=== PATIENT | male | born 1985 | race African-American/Black ===

== ENCOUNTER 2020-10-28 13:55 | Inpatient (IN) | payer OTHER ==
[~2020-10-28] VITALS: Ht 175.3 cm; Wt 95.0 kg
[2020-10-28] MEDS ORDERED: LORazepam 2 MG TAB PO PRN (14:15)
[2020-10-28 15:17] LABS: HEMATOCRIT 45.1 % (42.0-52.0); HEMOGLOBIN 16.1 g/dl (13.5-17.5); MEAN CORPUSCULAR HEMOGLOBIN 31.2 pg (27.0-33.0); MEAN CORPUSCULAR HGB CONC 35.7 g/dl (32.0-36.5); MEAN CORPUSCULAR VOLUME 87.4 fl (80.0-96.0); PLATELET COUNT, AUTOMATED 327 10^3/uL (150-450); RED BLOOD COUNT 5.16 10^6/uL (4.30-6.10); WHITE BLOOD COUNT 11.9 10^3/uL (4.0-10.0)
[2020-10-28 15:37] LABS: AMPHETAMINES LEVEL URINE NEGATIVE (NEGATIVE); BARBITURATES URINE NEGATIVE (NEGATIVE); BENZODIAZEPINES URINE NEGATIVE (NEGATIVE); CANNABINOIDS URINE NEGATIVE (NEGATIVE); COCAINE METABOLITE URINE NEGATIVE (NEGATIVE); METHADONE URINE NEGATIVE (NEGATIVE); OPIATES URINE NEGATIVE (NEGATIVE); PHENCYCLIDINE URINE NEGATIVE (NEGATIVE)
[2020-10-28 16:14] LABS: ACETAMINOPHEN LEVEL < 2.0 UG/ML (10.0-30.0); ALBUMIN 4.2 GM/DL (3.2-5.2); ALT/SGPT 33 U/L (12-78); BILIRUBIN,DIRECT 0.1 MG/DL (0.0-0.2); BILIRUBIN,TOTAL 0.7 MG/DL (0.2-1.0); BLOOD UREA NITROGEN 13 MG/DL (7-18); CALCIUM LEVEL 9.3 MG/DL (8.5-10.1); CARBON DIOXIDE LEVEL 30 MEQ/L (21-32); CHLORIDE LEVEL 105 MEQ/L (98-107); CREATININE FOR GFR 0.86 MG/DL (0.70-1.30); ETHYL ALCOHOL (ETHANOL) < 0.003 % (0.000-0.010); GLOMERULAR FILTRATION RATE > 60.0 (>60); GLUCOSE, FASTING 78 MG/DL (70-100); POTASSIUM SERUM 3.9 MEQ/L (3.5-5.1); SALICYLATE LEVEL < 1.7 MG/DL (5.0-30.0); SODIUM LEVEL 139 MEQ/L (136-145); THYROID STIMULATING HORMONE 0.893 uIU/ML (0.358-3.740); TOTAL PROTEIN 7.5 GM/DL (6.4-8.2)
[2020-10-28] MEDS: FOLIC ACID 1 MG TAB PO SCH (16:30)
[2020-10-28] MEDS: MULTIVITAMINS/MINERALS THERAP 1 TAB PO SCH (16:30)
[2020-10-28] MEDS: THIAMINE 100 MG TAB PO SCH ×2 (16:30→22:28)
--- NOTE | 2020-10-28 17:22 | ECGEPIP ---
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
[2020-10-28 19:05] LABS: RSV AMPLIFICATION NEGATIVE (NEGATIVE)
[2020-10-28] MEDS ORDERED: traZODone 50 MG TAB PO PRN (19:45)
[2020-10-28] MEDS ORDERED: ACETAMINOPHEN TAB 650MG DOSE (2X325MG) PO PRN (19:45)
[2020-10-28] MEDS ORDERED: MAALOX 30 ML SUSP *UDC PO PRN (19:45)
[2020-10-28] MEDS ORDERED: MOM 30ML SUSPENSION UDC PO PRN (19:45)
[2020-10-28 21:00] VITALS: BP 133/84
[2020-10-29 06:11] VITALS: BP 120/68
[2020-10-29] MEDS: MULTIVITAMINS/MINERALS THERAP 1 TAB PO SCH (09:43)
[2020-10-29] MEDS: THIAMINE 100 MG TAB PO SCH (09:43)
[2020-10-29] MEDS: FOLIC ACID 1 MG TAB PO SCH (09:43)
--- NOTE | 2020-10-29 12:52 | HPEPDOC ---
General Date of Admission October 28, 2020 at 13:56 Date of Service: October 29, 2020 Chief Complaint The patient is a 35-year-old male admitted with a reason for visit of Unspecified Depressive D/O. Source: Patient Exam Limitations: No limitations History of Present Illness Patient is 35 years old male with past history of knees arthritis, alcohol abuse presented to the hospital with suicidal ideation. Pt reports that he has been for 14 years and he has 3 children. 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 He reports that currently his is living in [place] with their three children. Pt reports that his is not willing to do marriage counseling and in turn he feels devastated. Pt reports SI with multiple plans. Patient reported that a few years ago he had cardiac arrhythmia but he doesn't remember his diagnosis. He doesn't take any medications. Also he states that he thinks 2 to 3 beers daily. Patient denies fever, chills, chest pain, palpitations, diarrhea or dysuria Home Medications No Active Prescriptions or Reported Meds Allergies Coded Allergies: No Known Allergies (Unverified , 10/28/20) Past Medical History Medical History knees arthritis, alcohol abuse Social History * Smoker: current smoker Alcohol: heavy Drugs: denies A-FIB/CHADSVASC A-FIB History Current/History of A-Fib/PAF?: No Current PO Anticoag Therapy: No Review of Systems Constitutional: Denies: Chills, Fever Eyes: Denies: Pain ENT: Denies: Head Aches Skin: Denies: Rash, Lesions Pulmonary: Denies: Dyspnea Cardiovascular: Denies: Chest Pain Gastrointestinal: Denies: Nausea Genitourinary: Denies: Dysuria Hematologic: Denies: Bruising Endocrine: Denies: Polydipsia Musculoskeletal: Denies: Neck Pain Neurological: Denies: Weakness Psych: Reports: Depression Physical Examination General Exam: Positive: Alert, Cooperative Eye Exam: Positive: PERRLA ENT Exam: Positive: Atraumatic Neck Exam: Positive: Supple; Negative: JVD Chest Exam: Positive: Clear to auscultation Heart Exam: Positive: Rate Normal Telemetry: Positive: No significant arrhythmia Abdomen Exam: Positive: Normal bowel sounds Extremity Exam: Negative: Clubbing Skin Exam: Negative: Nl turgor and temperature Neuro Exam: Positive: Normal Gait Psych Exam: Positive: Oriented x 3 Vital Signs Vital Signs Date Time Temp Pulse Resp B/P (MAP) Pulse Ox O2 Delivery O2 Flow Rate FiO2 10/29/20 06:11 98.4 72 16 120/68 (85) 98 Room Air Laboratory Data Labs 24H Laboratory Tests 2 10/28/20 14:49: Nucleated Red Blood Cells % (auto) 0.0, Anion Gap 4L, Glomerular Filtration Rate > 60.0, Calcium Level 9.3, Total Bilirubin 0.7, Direct Bilirubin 0.1, Aspartate Amino Transf (AST/SGOT) 15, Alanine Aminotransferase (ALT/SGPT) 33, Alkaline Phosphatase 98, Total Protein 7.5, Albumin 4.2, Albumin/Globulin Ratio 1.3, Thyroid Stimulating Hormone (TSH) 0.893, Salicylates Level < 1.7L, Urine Opiates Screen NEGATIVE, Urine Methadone Screen NEGATIVE, Acetaminophen Level < 2.0L, Urine Barbiturates Screen NEGATIVE, Urine Phencyclidine Screen NEGATIVE, Urine Amphetamines Screen NEGATIVE, Urine Benzodiazepines Screen NEGATIVE, Urine Cocaine Metabolite Screen NEGATIVE, Urine Cannabinoids Screen NEGATIVE, Ethyl Alcohol Level < 0.003 10/28/20 18:11: Coronavirus (COVID-19)(PCR) NEGATIVE, Influenza Type A (RT-PCR) NEGATIVE, Influenza Type B (RT-PCR) NEGATIVE, Respiratory Syncytial Virus (PCR) NEGATIVE CBC/BMP Laboratory Tests 10/28/20 14:49 Assessment/Plan Patient is 35 years old male with past history of knees arthritis, alcohol abuse presented to the hospital with suicidal ideation. Pt reports that he has been for 14 years and he has 3 children. 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 He reports that currently his is living in [place] with their three children. Pt reports that his is not willing to do marriage counseling and in turn he feels devastated. Pt reports SI with multiple plans. Patient reported that a few years ago he had cardiac arrhythmia but he doesn't remember his diagnosis. He doesn't take any medications. Also he states that he thinks 2 to 3 beers daily. Patient denies fever, chills, chest pain, palpitations, diarrhea or dysuria Problems (1) Suicidal ideation Status: Acute Problem Text: Defer treatment to psych team (2) History of cardiac arrhythmia Problem Text: Will check EKG (3) ETOH abuse Status: Chronic Problem Text: Continue CIWA Plan / VTE VTE Prophylaxis Ordered?: No VTE Exclusion Mechanical Proph: Low Risk for VTE CASA SHEIKH DO October 29, 2020 12:52
--- NOTE | 2020-10-29 15:39 | MHHPEPDOC ---
General Date Of Admission: October 28, 2020 Legal Status: Chief Complaint " I've been dealing with depression, left and now talking about divorce" History of Present Illness HISTORY OF THE PRESENT ILLNESS: Patient is a 35 -year-old , male, Active Duty [employer], who was admitted ti [facility] on legal status after reporting SI with multiple plans. . He states that he has been dealing with depression since July 2020 when his left him. She took their 3 chi ldren and went back to [place] where she comes from. They have been for 14 years and were having marital problems. States that;" I got so wrapped up in the enemy and forgot about my family". He states that about 2 weeks ago, she spoke with his on the telephone and she told him that they would not be getting back together and she is contemplating a divorce. She also refused to consider marriage counseling. Patient says that his said ; " I don't want to do this any more. You will always be my herrera and shining armor but I need a aba". Patient states that since their conversation, his depressive symptoms have become worse. Says that he has been having trouble sleeping, has been feeling helpless and hopeless, having anxiety and having suicidal thoughts. He denies having a suicide plan, but states that "when I'm having the suicide thoughts, I see my , my casket with people crying and being sad". He states that another stressor is the [employer] life. States that he's been in the [employer] for 14 years and he wants to get out. States; " I still have 2 more years in my contract, but I don't want to do one more day". He states that yesterday the depression and suicidal thoughts were so strong that he went to [facility] clinic for help, but they were unable to see him and told him that they would see him in 4 days. He states that he got upset that he wouldn't be seen at [facility] and he needed immediate help. He then drove himself to the [facility] ED. He has never been diagnosed with mental illness and is not on any medication. He drinks 3-4 beers a day. Smokes a pack a day. Denies using any other substances. Denies HI/AV/VH PER ED NOTE:Patient self presents to [facility] with increased hopelessness/helpl essness, depression and SI. 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 Patient reports that he has been to [place], [place], and [place]. Patient reports that he has been for 14 years and he has 3 children. Patient reports that while he was deployed he was unfaithful on 3 separate occasions. He reports that currently his is living in [place] with their three children. Patient reports that his is not willing to do marriage counseling and in turn he feels devastated. Patient reports SI with multiple plans. He repo rts that he could take multiple sleeping pills with alcohol, and also speaks of slitting his wrist. Patient is very tearful and reports that he hates feeling this way and not trusting himself. Patient does report that he recently has had a couple suicides in the family with the most recent being his father in law. Patient reports that he has been dreaming very vividly about his and at times this is very scary for him. Patient denies SI/HI/Self Injury Pt report that sometimes he hears "You'll be Okay" however, is unable to recognized the voice. Patient denies VH. Patient reports okay appetite and poor sleep. Psychiatric Review of Systems Depression (2 or more weeks): depressed mood, insomnia/hypersomnia, feelings of excess/guilt, decreased energy, difficulty concentrating, suicidal thoughts (SI- no plan, but sees people at his people hurt) Claudia (4 or more days of): denies Psychosis: denies PTSD: denies Anxiety: situational anxiety, stressor related anxiety Anxiety/ 6 months or more of: easily fatigued, irritability, sleep disturbance Past Psychiatric History Previous Psychiatric Diagnosis: Denies Previous Psychiatric Admissions: None Suicide Attempts: None Psychiatric Follow-up: Reported to [employer] on 10/28/20 Psychiatric medications: None Past Medical History Medical Problems Mitral regurgitation Head Injury: No Seizures: No Hospitalizations: No Surgeries: No Family Medical/Psychiatric HX Psychiatric Disorders: No Addiction History nicotine (a pach a day), alcohol (3 to 4 beers a day), cocaine Social History Childhood:Patient says childhood was " good". Grew up with mother and brother Abuse/Trauma:Denies Current Living Situation: [facility] Education: some college Employment: Active duty soldier Social Support: His Mother, has a friend in the army who is a support. Legal: Denies. Marital: Mental Status Examination General Appearance: personal clothing, other (slightly unkempt) Build: average Demeanor: average Eye Contact: average Activity: anxious Behavior: cooperative Speech: clear Mood: depressed Affect: anxious Thought Process: logical/linear Thought Content (Delusions): none reported Thought Content (Other): guilty Thought Content (Aggressive): none reported Perception (Hallucinations): none reported Perception (Other): none reported Cognition (Impairment of): none reported Cognition(Intelligence Est.): average Oriented: Awake, Alert, Oriented times three Insight: fair Judgment: Poor Psychosis: Denies Diagnoses Major Depressive Disorder, single episode, moderate Substance use disorder, alcohol Substance use disorder, nicotine A-FIB/CHADSVASC A-FIB History Current/History of A-Fib/PAF?: No Current PO Anticoag Therapy: No Assessment Patient is seen today. He is dressed in hospital clothing and is slightly unkempt. He is alert and oriented X 3. He states that he has been dealing with depression since July 2020 when his left him. States that she took their 3 children and went back to [place] where she comes from. States that they have been for 14 years and were having marital problems. States that;" I got so wrapped up in the enemy and forgot about my family". He states that about 2 weeks ago, she spoke with his on the telephone and she told him that they would not be getting back together and she is contemplating a divorce. She also refused to consider marriage counseling. Patient says that h is said ; " I don't want to do this any more, you will always be my herrera and shining armor but I need a aba". Patient states that since their conversation, his depressive symptoms have become worse. Says that he has been having trouble sleeping, has been feeling helpless and hopeless, having excessive guilt, having anxiety and having suicidal thoughts. He denies having a suicide plan, but states that "when I'm having the suicide thoughts, I see my , my casket with people crying and being sad". He states that another stressor is the [employer] life. States that he's been in the [employer] for 14 years and he wants to get out. States; " I still have 2 more years in my contract, but I don't want to do one more day". He states that yesterday the depression and suicidal thoughts were very strong that he went to [facility] clinic for help, but they were unable to see him and told him that they would see him in 4 days. He states that he got upset that he wouldn't be seen at [facility] and he needed immediate help. He then drove himself to the [facility] ED. He states that he has never been diagnosed with mental illness and is not on any medication. He drinks 3-4 beers a day. Smokes a pack a day. Denies using any other substances. Today he denies HI/AV/VH. States that he feels " a bit better" than yesterday. States that he is still depressed and anxious. Rates his depression at 8/10. States that since he was admitted, he has mostly been staying in his room. Encouraged patient to interact with peers and participate in group psychotherapy session. He is started on Zoloft 25mg PO today then from tomorrow Zoloft 50mg PO daily. Initial Treatment Plan 1. Patient was admitted on a [9.39] status. 2. Complete history was obtained. 3. With patients permission, family will be contacted and database will be expanded. 4. Patients medication regimen will be reviewed and changed accordingly. 5. Patient will be provided with protected environment. 6. Patient will be treated with individual, group, and milieu therapies. 7. Patient will receive supportive psych-education. 8. Discharge planning will commence immediately. 9. Outpatient follow-up treatment will be strongly recommended. 10. The initial treatment plan will focus initially on: * Depression. * Risk for suicide. ESTIMATED LENGTH OF STAY: - DAYS. TIME SPENT COUNSELING AND COORDINATING INITIAL CARE: minutes. N/A-No Antipsychotics Vital Signs Vital Signs Date Time Temp Pulse Resp B/P (MAP) Pulse Ox O2 Delivery O2 Flow Rate FiO2 10/29/20 06:11 98.4 72 16 120/68 (85) 98 Room Air Laboratory Data 24H Labs Laboratory Tests 2 10/28/20 14:49: Nucleated Red Blood Cells % (auto) 0.0, Anion Gap 4L, Glomerular Filtration Rate > 60.0, Calcium Level 9.3, Total Bilirubin 0.7, Direct Bilirubin 0.1, Aspartate Amino Transf (AST/SGOT) 15, Alanine Aminotransferase (ALT/SGPT) 33, Alkaline Phosphatase 98, Total Protein 7.5, Albumin 4.2, Albumin/Globulin Ratio 1.3, Thyroid Stimulating Hormone (TSH) 0.893, Salicylates Level < 1.7L, Urine Opiates Screen NEGATIVE, Urine Methadone Screen NEGATIVE, Acetaminophen Level < 2.0L, Urine Barbiturates Screen NEGATIVE, Urine Phencyclidine Screen NEGATIVE, Urine Amphetamines Screen NEGATIVE, Urine Benzodiazepines Screen NEGATIVE, Urine Cocaine Metabolite Screen NEGATIVE, Urine Cannabinoids Screen NEGATIVE, Ethyl Alcohol Level < 0.003 10/28/20 18:11: Coronavirus (COVID-19)(PCR) NEGATIVE, Influenza Type A (RT-PCR) NEGATIVE, Influenza Type B (RT-PCR) NEGATIVE, Respiratory Syncytial Virus (PCR) NEGATIVE CBC/BMP Laboratory Tests 10/28/20 14:49 Medications Scheduled Sertraline HCl (Sertraline HCl) 50 Mg Tablet, 50 MG PO DAILY for Depression Scheduled PRN Nicotine (Nicotine Patch) 21 Mg Patch.td24, 21 MG TD DAILY PRN for NICOTINE WITHDRAWAL Allergies Coded Allergies: No Known Allergies (Unverified , 10/28/20) OMAR FLOYD NP October 29, 2020 12:28
[2020-10-29] MEDS ORDERED: SERTRALINE HCL 25 MG TABLET PO ONE (17:15)
[2020-10-29 17:34] VITALS: BP 132/78
--- NOTE | 2020-10-29 22:15 | ECGEPIP ---
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 Electronically Signed on 10-29-2020 22:14:59 EDT by Elvis Carr
[2020-10-30 06:40] VITALS: BP 121/61
[2020-10-30] MEDS: SERTRALINE HCL 50 MG TAB PO SCH (09:08)
--- NOTE | 2020-10-30 20:50 | MHIPNPDOC ---
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 Pt reports that he has been to [place], [place], and [place]. Pt reports that he has been for 14 years and he has 3 children. 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 He reports that currently his is living in [place] with their three children. Pt reports that his is not willing to do marriage counseling and in turn he feels devastated. Pt reports SI with multiple plans. He reports that he could take multiple sleeping pills with alcohol, and also speaks of slitting his wrist. Pt is very tearful and reports that he hates feeling this way and not trusting himself. Pt does report that he recently has had a couple suicides in the family with the most recent being his father in law. Pt reports that he has been dreaming very vividly about his and at times this is very scary for him. Pt denies SI/HI/Self Inj Pt report that sometimes he hears "You'll be Okay" however, is unable to recognized the voice.Pt denies VH. Pt reports okay appetite and poor sleep. VITAL SIGNS: See below. NEW TEST RESULTS: See below CURRENT MEDICATIONS: See below. MENTAL STATUS EXAMINATION: General Appearance: hospital clothes, good hygiene and grooming, good eye contact Build: average Demeanor: average Eye Contact: average Activity: anxious, a little restless Behavior: cooperative Speech: clear Mood: OK Affect: Mildly anxious Thought Process: logical/linear Thought Content (Delusions): none reported Thought Content (Other): guilty Thought Content (Aggressive): none reported Perception (Hallucinations): none reported Perception (Other): none reported Cognition (Impairment of): none reported Cognition(Intelligence Est.): average Oriented: Awake, Alert, Oriented times three Insight: fair Judgment: Poor Psychosis: Denies Diagnoses Major Depressive Disorder, single episode, moderate Substance use disorder, alcohol Substance use disorder, nicotine ASSESSMENT: He says he has been sleeping too much but he feels rested. He reports he has felt calmer, he thinks it might be his antidepressant that is helping him. He is still disappointed about his leaving him but he says he feels a little better today. Will continue to monitor and will adjust medications if needed. ncouraged him to attend groups. MANAGEMENT PLAN: As above TIME SPENT: 15 minutes. Vital Signs Vital Signs Date Time Temp Pulse Resp B/P (MAP) Pulse Ox O2 Delivery O2 Flow Rate FiO2 10/30/20 06:40 98.3 60 18 121/61 (81) 97 Room Air Current Medications Current Medications Medications (Trade) Dose Ordered Sig/Raffi Route PRN Reason Start Time Stop Time Status Last Admin Dose Admin Acetaminophen (Tylenol Tab) 650 mg Q6HP PRN PO HEADACHE or DISCOMFORT 10/28/20 19:45 Al Hydrox/Mg Hydrox/Simethicone (Mylanta) 30 ml Q4HP PRN PO HEARTBURN/INDIGESTION 10/28/20 19:45 Folic Acid (Folic Acid) 1 mg DAILY PO 10/28/20 09:00 10/29/20 21:05 DC 10/29/20 09:43 Home Med (Med Rec Complete!) ASDIRECTED XX 10/28/20 17:40 10/28/20 17:38 DC Lorazepam (Ativan) 2 mg ASDIRECTED PRN PO SEE PROTOCOL 10/28/20 14:15 10/29/20 21:05 DC Magnesium Hydroxide (Milk Of Magnesia) 30 ml DAILYPRN PRN PO CONSTIPATION 10/28/20 19:45 Multivitamins (Theragram-M) 1 tab DAILY PO 10/28/20 09:00 10/29/20 21:05 DC 10/29/20 09:43 Sertraline HCl (Zoloft) 50 mg DAILY PO 10/30/20 09:00 10/30/20 09:08 Thiamine HCl (Thiamine HCl) 100 mg BID PO 10/28/20 15:00 10/29/20 21:09 DC 10/29/20 09:43 Trazodone HCl (Desyrel) 50 mg QHSP PRN PO INSOMNIA 10/28/20 19:45 Allergies Coded Allergies: No Known Allergies (Unverified , 10/28/20) MARTHA BEGUM MD October 30, 2020 12:38
[2020-10-31 06:06] VITALS: BP 120/72
[2020-10-31] MEDS: SERTRALINE HCL 50 MG TAB PO SCH (09:01)
--- NOTE | 2020-10-31 19:14 | MHIPNPDOC ---
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 Pt reports that he has been to [place], [place], and [place]. Pt reports that he has been for 14 years and he has 3 children. 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 He reports that currently his is living in [place] with their three children. Pt reports that his is not willing to do marriage counseling and in turn he feels devastated. Pt reports SI with multiple plans. He reports that he could take multiple sleeping pills with alcohol, and also speaks of slitting his wrist. Pt is very tearful and reports that he hates feeling this way and not trusting himself. Pt does report that he recently has had a couple suicides in the family with the most recent being his father in law. Pt reports that he has been dreaming very vividly about his and at times this is very scary for him. Pt denies SI/HI/Self Inj Pt report that sometimes he hears "You'll be Okay" however, is unable to recognized the voice.Pt denies VH. Pt reports okay appetite and poor sleep. VITAL SIGNS: See below. NEW TEST RESULTS: See below CURRENT MEDICATIONS: See below. MENTAL STATUS EXAMINATION: General Appearance: hospital clothes, good hygiene and grooming, good eye contact Build: average Demeanor: average Eye Contact: average Activity: Calm, no psychomotor retardation or psychomotor agitation Behavior: cooperative Speech: clear Mood: OK Affect: Congruent with mood, euthymic Thought Process: logical/linear Thought Content (Delusions): none reported Thought Content (Other): guilty, denies suicidal and homicidal ideation, denies thought delusions Thought Content (Aggressive): none reported Perception (Hallucinations): none reported Perception (Other): none reported Cognition (Impairment of): none reported Cognition(Intelligence Est.): average Oriented: Awake, Alert, Oriented times three Insight: fair Judgment: Improving Psychosis: Denies Diagnoses Major Depressive Disorder, single episode, moderate Substance use disorder, alcohol Substance use disorder, nicotine ASSESSMENT: Reports feeling better, he seems to be very pleased about the results he has obtained with Zoloft. He has been interacting in the unit with peers and staff. He plays games with his roommate, he is feeling calm, more relaxed. At this point he is not in danger to self or others, he is not suicidal, not homicidal and not psychotic MANAGEMENT PLAN: As above TIME SPENT: 15 minutes. Vital Signs Vital Signs Date Time Temp Pulse Resp B/P (MAP) Pulse Ox O2 Delivery O2 Flow Rate FiO2 10/31/20 10:35 Room Air 10/31/20 06:06 98.3 98 18 120/72 (88) 98 Current Medications Current Medications Medications (Trade) Dose Ordered Sig/Raffi Route PRN Reason Start Time Stop Time Status Last Admin Dose Admin Acetaminophen (Tylenol Tab) 650 mg Q6HP PRN PO HEADACHE or DISCOMFORT 10/28/20 19:45 Al Hydrox/Mg Hydrox/Simethicone (Mylanta) 30 ml Q4HP PRN PO HEARTBURN/INDIGESTION 10/28/20 19:45 Folic Acid (Folic Acid) 1 mg DAILY PO 10/28/20 09:00 10/29/20 21:05 DC 10/29/20 09:43 Home Med (Med Rec Complete!) ASDIRECTED XX 10/28/20 17:40 10/28/20 17:38 DC Lorazepam (Ativan) 2 mg ASDIRECTED PRN PO SEE PROTOCOL 10/28/20 14:15 10/29/20 21:05 DC Magnesium Hydroxide (Milk Of Magnesia) 30 ml DAILYPRN PRN PO CONSTIPATION 10/28/20 19:45 Multivitamins (Theragram-M) 1 tab DAILY PO 10/28/20 09:00 10/29/20 21:05 DC 10/29/20 09:43 Sertraline HCl (Zoloft) 50 mg DAILY PO 10/30/20 09:00 10/31/20 09:01 Thiamine HCl (Thiamine HCl) 100 mg BID PO 10/28/20 15:00 10/29/20 21:09 DC 10/29/20 09:43 Trazodone HCl (Desyrel) 50 mg QHSP PRN PO INSOMNIA 10/28/20 19:45 Allergies Coded Allergies: No Known Allergies (Unverified , 10/28/20) MARTHA BEGUM MD October 31, 2020 15:47
[2020-11-01 06:59] VITALS: BP 113/67
[2020-11-01] MEDS: SERTRALINE HCL 50 MG TAB PO SCH (07:53)
[2020-11-01] MEDS ORDERED: NICO1DIS12 TD (09:29)
[2020-11-01] MEDS ORDERED: SERT50TA29 PO (09:29)
--- NOTE | 2020-11-01 11:19 | MHDSPDOC ---
[facility] Discharge Summary Discharge Summary DATE OF ADMISSION: October 28, 2020 at 13:56 DATE OF DISCHARGE: November 01, 2020 at 0930 DISCHARGE DIAGNOSES: Major Depressive Disorder, single episode, moderate Substance use disorder, alcohol Substance use disorder, nicotine REASON FOR ADMISSION: Patient is a 35 -year-old , male, [employer] [place], who was admitted ti [facility] on 9.39 legal status after reporting SI with multiple plans. . He states that he has been dealing with depression since July 2020 when his left him. She took their 3 children and went back to [place] where she comes from. They have been for 14 years and were having marital problems. States that;" I got so wrapped up in the enemy and forgot about my family". He states that about 2 weeks ago, she spoke with his on the telephone and she told him that they would not be getting back together and she is contemplating a divorce. She also refused to consider marriage counseling. Patient says that his said ; " I don't want to do this any more. You will always be my herrera and shining armor but I need a aba". Patient states that since their conversation, his depressive symptoms have become worse. Says that he has been having trouble sleeping, has been feeling helpless and hopeless, having anxiety and having suicidal thoughts. He denies having a suicide plan, but states that "when I'm having the suicide thoughts, I see my , my casket with people crying and being sad". He states that another stressor is the [employer] life. States that he's been in the [employer] for 14 years and he wants to get out. States; " I still have 2 more years in my contract, but I don't want to do one more day". He states that yesterday the depression and suicidal thoughts were so strong that he went to [facility] clinic for help, but they were unable to see him and told him that they would see him in 4 days. He states that he got upset that he wouldn't be seen at [facility] and he needed immediate help. He then drove himself to the [facility] ED. He has never been diagnosed with mental illness and is not on any medication. He drinks 3-4 beers a day. Smokes a pack a day. Denies using any other substances. Denies HI/AV/VH PER ED NOTE:Patient self presents to [facility] with increased hopelessness/helplessness, depression and SI. 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 Patient reports that he has had 3 deployments and that he has been active duty for 14 years. 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 Patient reports that he has been to [place], [place], and [place]. Patient reports that he has been for 14 years and he has 3 children. Patient reports that while he was deployed he was unfaithful on 3 separate occasions. He reports that currently his is living in [place] with their three children. Patient reports that his is not willing to do marriage counseling and in turn he feels devastated. Patient reports SI with multiple plans. He reports that he could take multiple sleeping pills with alcohol, and also speaks of slitting his wrist. Patient is very tearful and reports that he hates feeling this way and not trusting himself. Patient does report that he recently has had a couple suicides in the family with the most recent being his father in law. Patient reports that he has been dreaming very vividly about his and at times this is very scary for him. Patient denies SI/HI/Self Injury Pt report that sometimes he hears "You'll be Okay" however, is unable to recognized the voice. Patient denies VH. Patient reports okay appetite and poor sleep. VITALS: See below CONSULTANTS INVOLVED: : See H + P by Hospitalist TREATMENT AND PROGRESS ON THE UNIT : Patient was admitted to the [facility] on a 39 legal status he was afforded the following treatment modalities: 1) Individual Therapy 2) Group Therapy 3) Medication Management 4) Milieu Therapy 5) Safe Environment HOSPITAL COURSE: Patient was admitted to [facility] on a 9.39 legal status. Patient was started on Zoloft with good effects. He reports that he is less depressed and anxious today. Denies suicidal ideations/homicidal ideations. He is not observed with any abnormal psychotic symptoms. When asked about his readiness for discharge, he states that today he is ready but not sure how he will be a month from now. Encouraged patient to continue therapy services. He had reported that his had the lost of her father by suicide. Patient was deployed a month after her father's passing and he believes that the life was a big stressor hindering helping his with her grief. He reports at times wanting to leave the . Reports that he has never been on medications, wants to eventually be tapered off this medication. He was educated about the Zoloft again, that he should not be stopping it without physician approval and that he should be tapered. He agrees to continued therapy and denies need to continued hospitalization. He is pleasant and cooperative in the interview, makes good eye contact, observed with euthymic mood and affect. DISCHARGE ASSESSMENT: In today's interview, patient is alert and oriented, pts dress is appropriate. Hygiene and grooming is well-kempt. Smiles on approach and is pleasant and engaged in the interview. Denies depression and anxiety. Denies suicidal and homicidal ideation, planning or intent. Denies and is not observed with roxann, psychotic symptoms of delusions, bizarre thinking, obsessions, paranoia, ruminations illogical thoughts, flight of ideas or having poor insight and judgment. Patient has normal mentation, declines further hospitalization on a voluntary status and meets criteria for discharge today. MENTAL STATUS EXAMINATION ON DISCHARGE: Patient is a 35 -year-old , male, [employer] [place], who was admitted to [facility] on legal status after reporting SI with multiple plans Speech: Is clear, regular rate and volume Language skills are intact Thought processes including: Logical Thought content: Denies SI. Denies any psychotic symptoms Description of abnormal or psychotic thoughts: no AH/VH Judgment: fair Insight:fair Orientation:Awake, Alert and oriented X3 Recent and remote memory: Intact Attention span and concentration: Average Language: Intact Fund of knowledge: Average Mood: Anxious. Affect: Full. MEDICATIONS ON DISCHARGE: See Discharge Reconciliation PLAN/FOLLOWUP ARRANGEMENTS: [facility] [place] The amount of time spent in the coordination of care for this patient was approximately 25 minutes. ETOH/Disorder Med Rx ETOH/DRUG DISORDER RX: Given to pt at d/c Vital Signs/I&Os Vital Signs Date Time Temp Pulse Resp B/P (MAP) Pulse Ox O2 Delivery O2 Flow Rate FiO2 11/01/20 06:59 97.8 74 20 113/67 (82) 96 Room Air Medications Scheduled Sertraline HCl (Sertraline HCl) 50 Mg Tablet, 50 MG PO DAILY for Depression, #7 Scheduled PRN Nicotine (Nicotine Patch) 21 Mg Patch.td24, 21 MG TD DAILY PRN for NICOTINE WITHDRAWAL, #7 Allergies Coded Allergies: No Known Allergies (Unverified , 10/28/20) OMAR FLOYD NP November 01, 2020 09:31
== END 2020-11-01 12:15 | disposition home or self-care (01) | DRG 885 ==
LOC: M ED 13:55 → M ED INP 13:56 → M PSY 20:53
PROVIDERS: ADMIT Psychiatry & Neurology Psychiatry; ATTEND Psychiatry & Neurology Psychiatry
DX: F32.1 Major depressive disorder, single episode, moderate (principal); R45.851 Suicidal ideations; M17.10 Unilateral primary osteoarthritis, unspecified knee; F10.10 Alcohol abuse, uncomplicated; F17.210 Nicotine dependence, cigarettes, uncomplicated; Z20.822 Contact with and (suspected) exposure to COVID-19; Z86.79 Personal history of other diseases of the circulatory system; Z63.5 Disruption of family by separation and divorce; Z91.82 Personal history of military deployment; Z56.6 Other physical and mental strain related to work